=== PATIENT | male | born 1935 | race Caucasian/White ===

== ENCOUNTER 2020-10-09 12:15 | Emergency (ER) | payer MEDICARE, BC ==
[~2020-10-09] VITALS: Ht 177.8 cm; Wt 86.2 kg
[2020-10-09] MEDS ORDERED: IV NORMAL SALINE 500 ML BAG IV ONE (12:45)
[2020-10-09] MEDS ORDERED: LIDOCAINE 5% PATCH TD ONE ×2 (12:45→12:55)
[2020-10-09] MEDS ORDERED: MORPHINE SULFATE 4 MG/1 ML DISP.SYRIN IV ONE (12:45)
[2020-10-09 12:55] LABS: BASOPHILS # (AUTO) 0.1 K/uL (0.0-8.0); BASOPHILS % (AUTO) 0.5 % (0.0-2.0); EOSINOPHILS # (AUTO) 0.1 K/uL (0.0-0.7); EOSINOPHILS % (AUTO) 0.6 % (0.0-7.0); HEMATOCRIT 39.3 % (36.7-47.1); HEMOGLOBIN 13.5 g/dL (12.5-16.3); LYMPHOCYTES # (AUTO) 1.1 K/uL (20.0-40.0); LYMPHOCYTES % (AUTO) 10.1 % (20.5-51.5); MEAN CORPUSCULAR HEMOGLOBIN 30.8 uug (23.8-33.4); MEAN CORPUSCULAR HGB CONC 34 g/dL (32.5-36.3); MONOCYTES # (AUTO) 0.9 K/uL (2.0-10.0); MONOCYTES % (AUTO) 7.9 % (0.0-11.0); NEUTROPHILS # (AUTO) 8.8 K/uL (1.8-8.9); NEUTROPHILS % (AUTO) 80.9 % (38.5-71.5); PLATELET COUNT (AUTO) 157 K/uL (152-348); RED BLOOD CELL COUNT(AUTO) 4.37 MIL/uL (4.06-5.63); WHITE BLOOD COUNT (AUTO) 10.9 K/uL (3.6-10.2)
[2020-10-09] MEDS ORDERED: MORPHINE SULFATE 4 MG/1 ML DISP.SYRIN ONE (12:55)
[2020-10-09] MEDS ORDERED: SWABABLE VALVE TRANSFER SET EA MC ONE (12:57)
[2020-10-09] MEDS ORDERED: IOHEXOL 350 100 ML INFUS..BTL ONE (12:57)
[2020-10-09] MEDS ORDERED: IV NORMAL SALINE 250 ML IV ONE (12:57)
[2020-10-09] MEDS ORDERED: ISOS30TA86 PO (13:02)
[2020-10-09] MEDS ORDERED: METO50TA16 PO (13:02)
[2020-10-09] MEDS ORDERED: SITA100T PO (13:02)
[2020-10-09] MEDS ORDERED: BENA20TA9 PO (13:02)
[2020-10-09] MEDS ORDERED: SPIR25TA6 PO (13:02)
[2020-10-09] MEDS ORDERED: FURO-151 PO (13:02)
[2020-10-09] MEDS ORDERED: TAMS-3 PO (13:02)
[2020-10-09] MEDS ORDERED: APIX5TAB PO (13:02)
[2020-10-09] MEDS ORDERED: ATOR40TA PO (13:02)
[2020-10-09] MEDS ORDERED: METF-494 PO (13:02)
[2020-10-09] MEDS ORDERED: DONE5TAB34 PO (13:02)
[2020-10-09] MEDS ORDERED: ESCI20TA PO (13:02)
[2020-10-09 13:05] LABS: POTASSIUM 4.4 mmol/L (3.5-5.1)
[2020-10-09 13:11] LABS: BILIRUBIN,DIRECT 0.1 mg/dL (0.0-0.2); BILIRUBIN,TOTAL 0.4 mg/dL (0.2-1.0)
[2020-10-09] MEDS ORDERED: INSU100V39 SQ (13:19)
[2020-10-09] MEDS ORDERED: ACYC400T PO (13:19)
[2020-10-09] MEDS ORDERED: INSU100I8 SQ (13:19)
[2020-10-09] MEDS ORDERED: ALBU18HF2 INH (13:19)
[2020-10-09] MEDS ORDERED: TOPI50TA PO ×2 (13:19)
[2020-10-09] MEDS ORDERED: NYST15CR2 TP (13:19)
[2020-10-09] MEDS ORDERED: LEVA15HF4 IH (13:19)
[2020-10-09] MEDS ORDERED: PANT40TA49 PO (13:19)
[2020-10-09] MEDS ORDERED: INSULIN REGULAR, HUMAN 300 UNIT/3 ML VIAL SQ ONE (14:00)
[2020-10-09 14:02] LABS: *BILIRUBIN,URIN NEGATIVE (NEGATIVE); *BLOOD, URINE NEGATIVE (NEGATIVE); *CLARITY,URINE CLEAR (CLEAR); *COLOR,URINE YELLOW (YELLOW); *KETONES,URINE NEGATIVE (NEGATIVE); *UROBILINOGEN,URINE 0.2 E.U./dl (NORMAL); LEUKOCYTE ESTERASE ,URINE NEGATIVE (NEGATIVE); NITRITE, URINE NEGATIVE (NEGATIVE); PH,URINE 7.5 (5.0-8.0); UGLUCOSE 2+ (NEGATIVE)
[2020-10-09] MEDS ORDERED: INSULIN REGULAR, HUMAN 300 UNIT/3 ML VIAL ONE (14:18)
[2020-10-09] MEDS ORDERED: LIDO30AD10 TD (15:53)
[2020-10-09] MEDS ORDERED: ACET1TAB23 PO (15:53)
--- NOTE | 2020-10-09 16:10 | NUR ---
RT AT BEDSIDE TO TEACH HOW TO USE INCENTIVE SPYROMETER.
--- NOTE | 2020-10-09 16:26 | NUR ---
Patient discharged to home in stable condition. Written and verbal after care instructions given. Patient verbalizes understanding of instructions. Stressed follow up or return to ER for worsening s/s.pt walks in steady gait. Addendum: 10/09/20 at 1630 by TRA AARON NAVARRO TALKED TO PT OVER THE PHONE. PT 'S SAID THAT SHE WILL COME AND TAKE HIM HOME AND WILL TAKE CARE OF HIM AT HOME.
[2020-10-09 16:31] VITALS: BP 129/61
== END 2020-10-09 16:31 | disposition home or self-care (01) ==
LOC: ER 12:15
DX: S22.31XA Fracture of one rib, right side, initial encounter for closed fracture (principal); W22.8XXA Striking against or struck by other objects, initial encounter; Y92.89 Other specified places as the place of occurrence of the external cause; I48.91 Unspecified atrial fibrillation; Z95.2 Presence of prosthetic heart valve; Z95.0 Presence of cardiac pacemaker; E11.65 Type 2 diabetes mellitus with hyperglycemia; E87.1 Hypo-osmolality and hyponatremia; I44.4 Left anterior fascicular block; I70.0 Atherosclerosis of aorta; Z90.49 Acquired absence of other specified parts of digestive tract; I25.10 Atherosclerotic heart disease of native coronary artery without angina pectoris
CPT/HCPCS: 36415; 71045; 71250; 74174; 80048; 80076; 81003; 82962; 83605; 83690; 85025; 96361; 96372; 96374; 99285; J1815; J2270; Q9967; A4663; J7050